=== PATIENT | female | born 1960 | race Caucasian/White ===

== ENCOUNTER 2021-01-22 19:11 | Emergency (ER) | payer SELFPAY ==
[~2021-01-22] VITALS: Ht 162.6 cm; Wt 56.7 kg
[2021-01-22 19:25] VITALS: BP 165/90
--- NOTE | 2021-01-22 19:28 | NUR ---
TO LOBBY A/W BED AMBULATORY
--- NOTE | 2021-01-22 20:13 | NUR ---
PT AMBULATED TO BED 7
--- NOTE | 2021-01-22 20:15 | NUR ---
PT. IS A 60 Y/O FEMALE THAT CAME INTO ED WITH C/O OF DIZZINESS. PT. STATES THAT SHE ALSO FEELS "NUMBNESS ON BOTH LEGS AND ARMS" THAT STARTED TODAY AT 4PM. PT. STATES THAT SHE HAS RIGHT SIDE PAIN AROUND RIB AND RATES PAIN AT 3/10 ON THE PAIN SCALE. PT. STATES HE HAS NAUSEA WITHOUT VOMITING. DENIES DIARRHEA; SKIN IS PINK/WARM/DRY; AAOX4 WITH EVEN AND STEADY GAIT; HR EVEN AND REGULAR; PT DENIES ANY FEVER, CP, SOB, OR COUGH AT THIS TIME; VSS; PATIENT POSITIONED FOR COMFORT; HOB ELEVATED; BEDRAILS UP X1; BED DOWN. ER MD MADE AWARE OF PT STATUS.
--- NOTE | 2021-01-22 20:54 | NUR ---
Dr. Lockett examining patient.
[2021-01-22] MEDS ORDERED: DICYCLOMINE HCL LIQUID 10 MG/5 ML UDC ONE (21:57)
[2021-01-22] MEDS ORDERED: ALUMINUM HYD/MAG/SIMETHICONE 30 ML UDC ONE (21:58)
[2021-01-22] MEDS: ONDANSETRON 4 MG ODT PO ONE (21:58)
[2021-01-22 22:00] LABS: BASOPHILS % (AUTO) 0.4 % (0.0-2.0); HEMATOCRIT 37.4 % (36-48); HEMOGLOBIN 12.2 g/dL (12.0-16.0); LYMPHOCYTES # (AUTO) 1.9 K/uL (2.5-16.5); LYMPHOCYTES % (AUTO) 39.4 % (20.5-51.1); MEAN CORPUSCULAR HEMOGLOBIN 27 pg (27-31); MEAN CORPUSCULAR HGB CONC 33 g/dL (33-37); MEAN CORPUSCULAR VOLUME 83.3 fL (80-94); MONOCYTES # (AUTO) 0.4 K/uL (0.8-1.0); MONOCYTES % (AUTO) 7.7 % (1.7-9.3); NEUTROPHILS # (AUTO) 2.4 K/uL (1.8-7.7); NEUTROPHILS % (AUTO) 51.5 % (42.2-75.2); PLATELET COUNT (AUTO) 209 K/uL (140-450); RED BLOOD CELL COUNT(AUTO) 4.49 MIL/uL (4.20-5.40); RED CELL DISTRIBUTION WIDTH 13.2 % (11.6-13.7); WHITE BLOOD COUNT (AUTO) 4.8 K/uL (4.8-10.8)
[2021-01-22] MEDS: DICYCLOMINE HCL LIQUID 20 MG, ALUMINUM HYD/MAG/SIMETHICONE 30 ML, LIDOCAINE VISCOUS 2% ... PO ONE ×3 (22:07)
[2021-01-22 22:16] LABS: ALBUMIN 4.2 g/dL (3.4-5.0); ANION GAP 9.9 (8-16); CARBON DIOXIDE 28.8 mmol/L (21-32); CREATININE 0.7 mg/dL (0.6-1.3); POTASSIUM 3.7 mmol/L (3.5-5.1); TOTAL BILIRUBIN 0.9 mg/dL (0.0-1.0)
[2021-01-22 22:23] LABS: APPEARANCE,URINE CLEAR (CLEAR); BILIRUBIN,URINE NEGATIVE (NEGATIVE); BLOOD, URINE TRACE-I (NEGATIVE); COLOR,URINE YELLOW (YELLOW); LEUKOCYTE ESTERASE ,URINE NEGATIVE (NEGATIVE); NITRITE, URINE NEGATIVE (NEGATIVE); UGLUCOSE NEGATIVE (NEGATIVE)
--- NOTE | 2021-01-22 22:25 | NUR ---
PT. LAYING IN BED SUPINE POSITION WITH DAUGHTER AT BEDSIDE, VOICES NO COMPLAINTS. WAITING FOR DISPOSITION.
[2021-01-22] MEDS ORDERED: FAMO-90 PO (22:40)
[2021-01-22] MEDS ORDERED: MAG355OR2 PO (22:40)
[2021-01-22] MEDS ORDERED: ONDA-24 PO (22:40)
[2021-01-22 23:03] LABS: RBC,URINE 0-5 /HPF (0-5); WBC,URINE 0-5 /HPF (0-5)
[2021-01-22 23:10] VITALS: BP 163/84
--- NOTE | 2021-01-22 23:10 | NUR ---
Patient discharged with v/s stable. Written and verbal after care instructions given and explained. Patient alert, oriented and verbalized understanding of instructions. Ambulatory with steady gait. All questions addressed prior to discharge. Patient advised to follow up with PMD. Rx of PEPCID, MAALOX MAXIMUM STRENGTH SUSP, AND ZOFRAN ODT given. Patient educated on indication of medication including possible reaction and side effects. Opportunity to ask questions provided and answered.
== END 2021-01-22 23:10 | disposition home or self-care (01) ==
LOC: MED 19:11
DX: K29.70 Gastritis, unspecified, without bleeding (principal); I10 Essential (primary) hypertension; Z79.899 Other long term (current) drug therapy
CPT/HCPCS: 36415; 80053; 81001; 83690; 84484; 85025; 93005; 99284; Q0162; 99285